=== PATIENT | female | born 1950 | race Hispanic/Latino ===

== ENCOUNTER 2025-02-07 10:39 | Outpatient (CLI) | payer MEDICARE | END 2025-02-07 10:40 | disposition home or self-care (01) | LOC: MADRAD 10:39 | PROVIDERS: ATTEND Nurse Practitioner Family | DX: M25.562 Pain in left knee (principal); M25.561 Pain in right knee; R07.89 Other chest pain; M17.12 Unilateral primary osteoarthritis, left knee | CPT/HCPCS: 71046 ==